=== PATIENT | female | born 1960 | race Caucasian/White ===

== ENCOUNTER → 2020-09-22 09:07 | Outpatient (BNVA) | payer MEDICARE, MEDICAID, SELFPAY | PROVIDERS: PCP Family Medicine; Visit Provider Hospitalist | DX: Z13.89 Encounter for screening for other disorder (principal) | CPT/HCPCS: Q3014 ==

== ENCOUNTER → 2021-02-13 09:18 | Outpatient (BNVA) | payer MEDICARE, MEDICAID, SELFPAY | PROVIDERS: PCP Internal Medicine; Visit Provider Hospitalist | DX: J96.11 Chronic respiratory failure with hypoxia (principal); J96.12 Chronic respiratory failure with hypercapnia; S06.9X9D Unspecified intracranial injury with loss of consciousness of unspecified duration, subsequent encounter; Z99.11 Dependence on respirator [ventilator] status; Z93.0 Tracheostomy status | CPT/HCPCS: 99212 ==

== ENCOUNTER → 2021-06-15 10:02 | Outpatient (BNVA) | payer MEDICARE, MEDICAID, SELFPAY | PROVIDERS: PCP Internal Medicine; Visit Provider Hospitalist | CPT/HCPCS: Q3014 ==

== ENCOUNTER 2021-08-14 08:47 | Outpatient (REF) | payer MEDICARE, MEDICAID, SELFPAY ==
--- NOTE | ~2021-08-14 | XR_ITS ---
EXAMINATION: XR CHEST CLINICAL INFORMATION: Atelectasis. COMPARISON: None TECHNIQUE: 2 views of the chest were obtained. FINDINGS: Two rotated AP sitting views of the chest performed. There is limited evaluation of the retrocardiac region. I do not definitely see the left hemidiaphragm, and left lower lobe parenchymal process cannot be excluded. No pneumothorax is seen. Heart normal in size. No evidence of pulmonary edema. There appears be a gastrostomy tube present in the left upper quadrant. XR/XR chest 2V IMPRESSION: Limited study with suspicion of left lower lobe disease.
== END 2021-08-14 08:48 | disposition home or self-care (01) ==
LOC: HO.XRAY 08:47
PROVIDERS: PCP Internal Medicine; Visit Provider Hospitalist
DX: J98.11 Atelectasis (principal); Z93.1 Gastrostomy status
CPT/HCPCS: 71046

== ENCOUNTER → 2021-12-17 08:54 | Outpatient (BNVA) | payer MEDICARE, MEDICAID, SELFPAY | PROVIDERS: PCP Internal Medicine; Visit Provider Hospitalist | DX: S06.9X9D Unspecified intracranial injury with loss of consciousness of unspecified duration, subsequent encounter (principal); J96.11 Chronic respiratory failure with hypoxia; J96.12 Chronic respiratory failure with hypercapnia; J98.11 Atelectasis; Z93.0 Tracheostomy status; Z99.11 Dependence on respirator [ventilator] status | CPT/HCPCS: 99212 ==

== ENCOUNTER → 2022-06-17 10:20 | Outpatient (BNVA) | payer MEDICARE, MEDICAID, SELFPAY | PROVIDERS: PCP Internal Medicine; Visit Provider Hospitalist | DX: J98.11 Atelectasis (principal); J96.11 Chronic respiratory failure with hypoxia; J96.12 Chronic respiratory failure with hypercapnia; S06.9X9D Unspecified intracranial injury with loss of consciousness of unspecified duration, subsequent encounter; Z99.11 Dependence on respirator [ventilator] status; Z93.0 Tracheostomy status | CPT/HCPCS: Q3014 ==

== ENCOUNTER → 2022-12-17 09:25 | Outpatient (BNVA) | payer MEDICARE, MEDICAID, SELFPAY | PROVIDERS: PCP Internal Medicine; Visit Provider Hospitalist | DX: S06.9X9D Unspecified intracranial injury with loss of consciousness of unspecified duration, subsequent encounter (principal); X58.XXXD Exposure to other specified factors, subsequent encounter; J96.11 Chronic respiratory failure with hypoxia; J96.12 Chronic respiratory failure with hypercapnia; J98.11 Atelectasis; R56.9 Unspecified convulsions; Z99.11 Dependence on respirator [ventilator] status; Z93.0 Tracheostomy status | CPT/HCPCS: 99212 ==

== ENCOUNTER 2024-08-24 08:50 | Outpatient (REF) | payer MEDICARE, SELFPAY | END 2024-08-24 08:51 | disposition home or self-care (01) | LOC: HO.WMHL 08:50 | PROVIDERS: Visit Provider Nurse Practitioner | DX: Z13.89 Encounter for screening for other disorder (principal) | CPT/HCPCS: 81001; 81003; 87086; 87088; 87186 ==